=== PATIENT | male | born 1955 | race African-American/Black ===

== ENCOUNTER 2016-06-02 23:38 | Emergency (ER) | payer BC ==
[2016-06-03] MEDS ORDERED: KETOROLAC 60 MG/2 ML VIAL IM ONE (04:03)
== END 2016-06-03 06:40 | disposition home or self-care (01) ==
LOC: ER 23:38
DX: M25.512 Pain in left shoulder (principal)
CPT/HCPCS: 36415; 71010; 80053; 82550; 82553; 84484; 85025; 85610; 85730; 93005; 96372